=== PATIENT | male | born 1995 | race African-American/Black ===

== ENCOUNTER 2017-10-30 22:35 | Emergency (ER) | payer BC | END 2017-10-30 23:12 | disposition left against medical advice (07) | LOC: ERS 22:35 | DX: Z53.21 Procedure and treatment not carried out due to patient leaving prior to being seen by health care provider (principal) ==

== ENCOUNTER 2017-10-31 09:31 | Emergency (ER) | payer BC ==
[2017-10-31] MEDS ORDERED: Ketorolac Tromethamine 60 MG/2 ML VIAL ONE (12:15)
== END 2017-10-31 12:21 | disposition home or self-care (01) ==
LOC: ERS 09:31
DX: S39.012A Strain of muscle, fascia and tendon of lower back, initial encounter (principal); J45.909 Unspecified asthma, uncomplicated; V43.62XA Car passenger injured in collision with other type car in traffic accident, initial encounter
CPT/HCPCS: 96372; J1885